=== PATIENT | male | born 1985 | race Caucasian/White ===

== ENCOUNTER 2017-02-18 18:44 | Emergency (ER) | payer OTHER | END 2017-02-18 23:45 | disposition home or self-care (01) | LOC: ER1 18:44 | DX: L02.511 Cutaneous abscess of right hand (principal); L03.113 Cellulitis of right upper limb; F17.220 Nicotine dependence, chewing tobacco, uncomplicated; Z88.0 Allergy status to penicillin | CPT/HCPCS: 10061; 87070; 87077; 87205; 99283 ==

== ENCOUNTER → 2017-02-20 | Outpatient (CLI) | payer OTHER | LOC: EROP 11:24 | DX: Z76.0 Encounter for issue of repeat prescription (principal) | CPT/HCPCS: G0463 ==

== ENCOUNTER → 2017-02-22 | Outpatient (CLI) | payer OTHER | LOC: OPSV 13:06 | DX: L02.91 Cutaneous abscess, unspecified (principal) | CPT/HCPCS: G0463 ==

== ENCOUNTER → 2017-02-24 | Outpatient (CLI) | payer OTHER | LOC: OPSV 08:00 | DX: L02.91 Cutaneous abscess, unspecified (principal) | CPT/HCPCS: G0463 ==

== ENCOUNTER → 2017-02-28 | Outpatient (CLI) | payer OTHER | LOC: OPSV 09:30 | DX: L02.91 Cutaneous abscess, unspecified (principal) | CPT/HCPCS: G0463 ==